=== PATIENT | male | born 1950 | race Caucasian/White ===

== ENCOUNTER 2017-12-27 05:47 | Outpatient (CLI) | payer MEDICARE, MEDICAID ==
[~2017-12-27] VITALS: Ht 175.3 cm; Wt 121.1 kg
[2017-12-27] MEDS ORDERED: RSP3T PO (14:08)
[2017-12-27] MEDS ORDERED: OMG1KC PO (14:08)
[2017-12-27] MEDS ORDERED: PARO40TA PO (14:08)
[2017-12-27] MEDS ORDERED: FURO20TA4 PO (14:08)
[2017-12-27] MEDS ORDERED: TRIH5TAB2 PO (14:08)
== END 2017-12-27 14:17 ==
LOC: PREOP 05:47
PROVIDERS: ATTEND Specialist
DX: Z01.818 Encounter for other preprocedural examination (principal); H25.89 Other age-related cataract

== ENCOUNTER 2017-12-29 09:20 | Day surgery (SDC) | payer MEDICARE, MEDICAID ==
[~2017-12-29] VITALS: Ht 175.3 cm; Wt 121.1 kg
[~2017-12-29 09:20] MED LIST: FURO20TA4 PO; OMG1KC PO; PARO40TA PO; RSP3T PO; TRIH5TAB2 PO
[2017-12-29 09:24] VITALS: BP 112/75
[2017-12-29] MEDS ORDERED: VANCOMYCIN/BSS (COMPOUNDED) 10 MG/ML SYR OP NR (09:30)
[2017-12-29] MEDS ORDERED: LIDOCAINE PF 1% 2 ML AMP IR PRN (09:30)
[2017-12-29] MEDS ORDERED: POVIDONE (BETADINE) OPHTH SOLN 5% 30 ML OP NR (09:30)
[2017-12-29] MEDS ORDERED: TIMOLOL MALEATE 0.5% 5 ML (TIMOPTIC) BTL OU PRN (09:30)
[2017-12-29] MEDS ORDERED: EPINEPHrine INJECTION 1 MG/ML AMP INJ NR (09:30)
[2017-12-29] MEDS: TETRACAINE 0.5% OPHTH SOLN 4 ML BTL (SINGLE DOSE ONLY) OU PRN ×5 (09:33→09:45)
[2017-12-29] MEDS: PHENYLEPHRINE 10% OPHTH (NEO-SYN) 5 ML BTL OU SCH ×3 (09:38→09:45)
[2017-12-29] MEDS: CYCLOPENTOLATE 1% (CYCLOGYL) 2 ML DROPS OP SCH ×3 (09:38→09:45)
[2017-12-29] MEDS ORDERED: MIDAZOLAM 2 MG/2 ML (VERSED) VIAL ONE (09:49)
--- NOTE | 2017-12-29 10:02 | Ophthalmologist Pre-Op Note ---
Pre-Operative Progress Note H&P Reviewed The H&P was reviewed, patient examined and no changes noted. Date H&P Reviewed: Dec 29, 2017 Time H&P Reviewed: 10:02 Pre-Op Dx Cataract, Left Eye KHAI RG MD Dec 29, 2017 10:02
--- NOTE | 2017-12-29 10:41 | Ophthalmology Operative Report ---
Cataract removal/placement IOL PREOPERATIVE DIAGNOSIS: 1. Mature Cataract Left Eye 2. Stain the anterior capsule with Vision Blue. POSTOPERATIVE DIAGNOSIS: 1. Mature Cataract Left Eye 2. Stain the anterior capsule with Vision Blue. PROCEDURE: 1. Cataract removal and placement of posterior chamber implant , left eye. 2. Stain the anterior capsule with Vision Blue. SURGEON: Aidan Rg ANESTHESIA: Topical with sedation COMPLICATIONS: None ESTIMATED BLOOD LOSS: Minimal DESCRIPTION OF PROCEDURE: After proper informed consent was obtained, the patient, 67 male ,was taken to the Operating Room and the left eye was anesthetized with tetracaine. The left eye was then prepped and draped in the usual manner. A wire lid speculum was placed. A paracentesis was made at the left hand position. Preservative free lidocaine was injected into anterior chamber. An air bubble was injected followed by vision blue. Viscoelastic was then injected into the anterior chamber. A clear corneal incision was made in the temporal position. A capsulorrhexis was performed and the central nuclear and cortical material were removed. Vision blue was used to visualize capsule. The posterior capsule was polished and Henry 17.0 SN6CWS IOL was placed into the capsular bag. The residual viscoelastic was aspirated and balanced saline solution was injected into the anterior chamber. 0.1ml of Vancomycin (1mg/0.1ml) was injected into the anterior chamber. The wound was checked and found to be water tight. The patient tolerated the procedure well without complications. AIDAN RG MD Dec 29, 2017 10:41
[2017-12-29 11:25] VITALS: BP 111/86
--- NOTE | 2017-12-29 13:53 | Anesthesia-General Post-Op ---
MAC Patient Condition Mental Status/LOC: Same as Preop Cardiovascular: Satisfactory Nausea/Vomiting: Absent Respiratory: Satisfactory Pain: Controlled Complications: Absent Post Op Complications Complications None Follow Up Care/Instructions Patient Instructions None needed. Anesthesiology Discharge Order Discharge Order Patient is doing well, no complaints, stable vital signs, no apparent adverse anesthesia problems. No complications reported per nursing. ALEENA BELTRE CRNA Dec 29, 2017 13:53
== END 2017-12-29 11:24 | disposition home or self-care (01) ==
LOC: SDC 09:20
PROVIDERS: ATTEND Specialist
DX: H25.89 Other age-related cataract (principal)

== ENCOUNTER 2018-01-26 09:48 | Day surgery (SDC) | payer MEDICARE, MEDICAID ==
[~2018-01-26] VITALS: Ht 175.3 cm; Wt 121.1 kg
--- OUTSIDE RECORDS SUMMARY | 2018-01-26 09:51 | XMS REPORT ---
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 Name Role Phone VIKAARLETTE LEON Unavailable PROBLEMS Type Condition ICD9-CM Code [id number] Code Onset Dates Condition Status SNOMED Code Problem Cataract of both eyes, unspecified cataract type H26.9 Active 71562879 Problem Encounter for examination for admission to half-way Z02.2 Active 844513506 Problem Schizophrenia, unspecified type F20.9 Active 16341545 Problem Localized edema R60.0 Active 922527461 ALLERGIES No Known Allergies ENCOUNTERS Encounter Location Date Diagnosis [place] [address] [address] Dec, [facility] [address] [place], [place] [id number] Dec, Skin tag L91.8 [place] [address] [address] November, [place] [address] [place] [id number] [place] [phone] Oct, [facility] [address] [place], [place] [id number] Oct, Cataract of both eyes, unspecified cataract type H26.9 ; Encounter for examination for admission to half-way Z02.2 and Schizophrenia, unspecified type F20.9 [place] [id number] [place] [id number] [place] [phone] Oct, [place] [address] [address] Sep, [place] [address] [address] Aug, Schizophrenia, unspecified type F20.9 and Localized edema R60.0 [facility] [address] [facility] [id number] [place] [address] Jul, Schizophrenia, unspecified type F20.9 [facility] [address] [facility] [id number] [place] [address] Jul, IMMUNIZATIONS No Known Immunizations SOCIAL HISTORY Never Assessed REASON FOR VISIT intake PLAN OF CARE VITAL SIGNS Height 69.5 in 2017-08-16 Weight 270.9 lbs 2017-08-16 Heart Rate 88 bpm 2017-08-16 Respiratory Rate 20 2017-08-16 BMI 39.43 kg/m2 2017-08-16 Blood pressure systolic 130 mmHg 2017-08-16 Blood pressure diastolic 86 mmHg 2017-08-16 MEDICATIONS Medication Instructions Dosage Frequency Start Date End Date Duration Status Trihexyphenidyl HCl 5 MG Orally once daily as needed 1 tablet 30 days Active Risperdal 3 MG Orally at bedtime 1 tablet 30 days Active Furosemide 20 MG Orally Once a day 1 tablet 24h 30 days Active Paxil 40 MG Orally Once a day 1 tablet in the morning 24h 30 days Active RESULTS No Results PROCEDURES Procedure Date Ordered Result Body Site [facility] VISIT ESTABLISHED PATIENT Aug 16, 2017 INSTRUCTIONS MEDICATIONS ADMINISTERED No Known Medications MEDICAL (GENERAL) HISTORY Type Description Date Medical History peripheral edema Medical History schizophrenia Surgical History tonsils removed Hospitalization History OSH, [facility] psych unit, inpatient psych
[2018-01-26 10:00] VITALS: BP 114/80
[2018-01-26] MEDS ORDERED: POVIDONE (BETADINE) OPHTH SOLN 5% 30 ML OP ONE (10:00)
[2018-01-26] MEDS ORDERED: VANCOMYCIN/BSS (COMPOUNDED) 10 MG/ML SYR OP ONE (10:00)
[2018-01-26] MEDS ORDERED: TIMOLOL MALEATE 0.5% 5 ML (TIMOPTIC) BTL OU PRN (10:00)
[2018-01-26] MEDS ORDERED: LIDOCAINE PF 1% 2 ML AMP IR PRN (10:00)
[2018-01-26] MEDS ORDERED: EPINEPHrine INJECTION 1 MG/ML AMP INJ ONE (10:00)
[2018-01-26] MEDS: TETRACAINE 0.5% OPHTH SOLN 4 ML BTL (SINGLE DOSE ONLY) OU PRN ×4 (10:03→10:12)
[2018-01-26] MEDS: PHENYLEPHRINE 10% OPHTH (NEO-SYN) 5 ML BTL OU SCH ×3 (10:06→10:12)
[2018-01-26] MEDS: CYCLOPENTOLATE 1% (CYCLOGYL) 2 ML DROPS OP SCH ×3 (10:06→10:12)
--- NOTE | 2018-01-26 10:31 | Ophthalmologist Pre-Op Note ---
Pre-Operative Progress Note H&P Reviewed The H&P was reviewed, patient examined and no changes noted. Date H&P Reviewed: Jan 26, 2018 Time H&P Reviewed: 10:30 Pre-Op Dx Cataract, Right Eye KHAI RG MD Jan 26, 2018 10:30
[2018-01-26] MEDS ORDERED: MIDAZOLAM 2 MG/2 ML (VERSED) VIAL ONE (10:32)
--- NOTE | 2018-01-26 10:57 | Anesthesia-General Post-Op ---
MAC Patient Condition Mental Status/LOC: Same as Preop Cardiovascular: Satisfactory Nausea/Vomiting: Absent Respiratory: Satisfactory Pain: Controlled Complications: Absent Post Op Complications Complications None Follow Up Care/Instructions Patient Instructions None needed. Anesthesiology Discharge Order Discharge Order Patient is doing well, no complaints, stable vital signs, no apparent adverse anesthesia problems. No complications reported per nursing. JENISE RAWLS CRNA Jan 26, 2018 10:57
--- NOTE | 2018-01-26 10:58 | Ophthalmology Operative Report ---
Cataract removal/placement IOL PREOPERATIVE DIAGNOSIS: 1. Mature Cataract Right Eye 2. Stain the anterior capsule with Vision Blue. POSTOPERATIVE DIAGNOSIS: 1. Mature Cataract Right Eye 2. Stain the anterior capsule with Vision Blue. PROCEDURE: 1. Cataract removal and placement of posterior chamber implant , right eye. 2. Stain the anterior capsule with Vision Blue. SURGEON: Aidan Rg ANESTHESIA: Topical with sedation COMPLICATIONS: None ESTIMATED BLOOD LOSS: Minimal DESCRIPTION OF PROCEDURE: After proper informed consent was obtained, the patient was taken to the Operating Room and the right eye was anesthetized with tetracaine. The right eye was then prepped and draped in the usual manner. A wire lid speculum was placed. A paracentesis was made at the left hand position. Preservative free lidocaine was injected into anterior chamber followed by viscoelastic. A clear corneal incision was made in the temporal position. A capsulorrhexis was performed and the central nuclear and cortical material were removed. Vision blue was used to visualize capsule. The posterior capsule was polished and an Henry AUTOO 17.5D IOL was placed into the capsular bag. The residual viscoelastic was aspirated and balanced saline solution was injected into the anterior chamber. 0.1ml of Vancomycin (1mg/0.1ml) was injected into the anterior chamber. The wound was checked and found to be water tight. The patient tolerated the procedure well without complications. AIDAN RG MD Jan 26, 2018 10:58
[2018-01-26 11:09] VITALS: BP 114/84
== END 2018-01-26 11:15 | disposition home or self-care (01) ==
LOC: SDC 09:48
PROVIDERS: ATTEND Specialist
DX: H25.9 Unspecified age-related cataract (principal)

== ENCOUNTER 2022-07-08 06:29 | Outpatient (CLI) | payer MEDICARE, MEDICAID ==
[~2022-07-08] VITALS: Ht 177.8 cm; Wt 132.9 kg
[~2022-07-08 06:29] MED LIST changes: -TRIH5TAB2 PO; +TRIH5TAB7 PO
== END 2022-07-12 15:07 | disposition home or self-care (01) ==
LOC: PREOP 06:29
PROVIDERS: ATTEND Specialist
DX: Z01.818 Encounter for other preprocedural examination (principal)

== ENCOUNTER 2022-07-15 09:47 | Day surgery (SDC) | payer MEDICARE, MEDICAID ==
[~2022-07-15] VITALS: Ht 177.8 cm; Wt 132.9 kg
[2022-07-15] MEDS: TETRACAINE 0.5% OPHTH SOLN 4 ML BTL (SINGLE DOSE ONLY) OU PRN ×3 (10:12→10:18)
[2022-07-15] MEDS ORDERED: TROPICAMIDE 1% OPH SOLN (MYDRIACYL) 15 ML BTL OU PRN (10:15)
[2022-07-15] MEDS ORDERED: PHENYLEPHRINE 10% OPHTH (NEO-SYN) 5 ML BTL OU PRN (10:15)
[2022-07-15 10:19] VITALS: BP 125/83
--- NOTE | 2022-07-15 11:20 | Ophthalmologist Pre-Op Note ---
Pre-Operative Progress Note H&P Reviewed The H&P was reviewed, patient examined and no changes noted. Date H&P Reviewed: Jul 15, 2022 Time H&P Reviewed: 10:35 Pre-Op Dx Secondary Cataract, Bilateral Eyes KHAI RG MD Jul 15, 2022 11:20
--- NOTE | 2022-07-15 11:21 | Ophthalmology Operative Report ---
YAG Capsulotomy PREOPERATIVE DIAGNOSIS: Secondary Cataract Bilateral POSTOPERATIVE DIAGNOSIS: Secondary Cataract Bilateral PROCEDURE: YAG Capsulotomy, Bilateral SURGEON: Aidan Rg ANESTHESIA: Topical anesthesia COMPLICATIONS: None ESTIMATED BLOOD LOSS: Minimal DESCRIPTION OF PROCEDURE: After proper informed consent was obtained, the patient's, a 71 male , received one drop of Tropicamide and one drop of Tetracaine in each eye. The patient was then placed at the YAG laser and using a power of [501 ] millijoules and bursts [16 ] right eye and [18 ] left eye were used to fashion a central capsulotomy. The patient tolerated the procedure well without complications. AIDAN RG MD Jul 15, 2022 11:20
== END 2022-07-15 10:50 | disposition home or self-care (01) ==
LOC: SDC 09:47 → EDSTATUS 13:30
PROVIDERS: ATTEND Specialist
DX: H26.40 Unspecified secondary cataract (principal)